=== PATIENT | male | born 2005 | race Caucasian/White ===

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

== ENCOUNTER 2024-03-05 18:15 | Emergency (ER) | payer OTHER ==
[2024-03-05 18:50] VITALS: BP 144/80; PULSE 79
[2024-03-06] MEDS ORDERED: FLUoxetine 10 MG Cap PO ONE (00:13)
[2024-03-06] MEDS: FLUoxetine 20 MG Cap PO SCH (00:43)
[2024-03-06] MEDS ORDERED: FLUoxetine 20 MG Cap PO SCH (21:00)
== END 2024-03-06 00:46 | disposition home or self-care (01) ==
LOC: JP.ED 18:15
DX: F32.A Depression, unspecified (principal); R45.851 Suicidal ideations; Z87.891 Personal history of nicotine dependence; Z88.8 Allergy status to other drugs, medicaments and biological substances
CPT/HCPCS: 99284; A9270

== ENCOUNTER 2024-06-28 12:26 | Emergency (ER) | payer OTHER ==
[2024-06-28 12:36] VITALS: BP 146/97; PULSE 71
[2024-06-28] MEDS: Morphine 2 MG/ML SYRINGE IVPUSH ONE (14:13)
[2024-06-28] MEDS: Sodium Chloride 0.9% 100 ML IV ONE (15:40)
[2024-06-28] MEDS: Sodium Chloride 0.9% 10 ML Syringe FLUSH ONE (15:40)
[2024-06-28] MEDS: Iopamidol 612 MG/ML 100 ML Bottle IV ONE (15:40)
== END 2024-06-28 14:58 | disposition home or self-care (01) ==
LOC: JP.ED 12:26
DX: S06.0X1A Concussion with loss of consciousness of 30 minutes or less, initial encounter (principal); S20.212A Contusion of left front wall of thorax, initial encounter; Z88.8 Allergy status to other drugs, medicaments and biological substances; V49.9XXA Car occupant (driver) (passenger) injured in unspecified traffic accident, initial encounter
CPT/HCPCS: 70450; 71260; 72125; 73070; 74177; 76377; 96374; 99284; 99285; J2270; Q9967